=== PATIENT | male | born 1955 | race Caucasian/White ===

== ENCOUNTER → 2018-11-26 17:37 | Outpatient (CLI) | payer OTHER, SELFPAY ==
--- NOTE | 2018-11-26 18:15 | MRI_ITS ---
HISTORY: Spondylosis, RIGHT leg and buttock pain x 7 months. History of spine surgery 40 years ago. EXAM/TECHNIQUE: MR Spine Lumbar W/O Contrast: 1.5 Susannah. Multiplanar, multisequence. COMPARISON: None. FINDINGS: # of images incl. paperwork: 127 No fracture or acute signal changes in the vertebrae or disks. Disc desiccation most prominent in the lower lumbar spine. Multilevel mild endplate degenerative signal changes and irregularity, most prominent at L4-5 and L5-S1. Conus medullaris terminates at the level of the L1-2 disc with normal contour and signal. Thecal sac terminates at the level of S1-2. No acute or concerning findings in the paraspinal soft tissues. At L1-2, mild bilateral facet degeneration causes only mild narrowing. At L2-3, small disc bulge and mild bilateral facet degeneration causes only mild narrowing. At L3-4, diffuse disc bulge and mild bilateral facet degeneration causes mild narrowing of the spinal canal and right foramen. Disc abuts but does not displace the traversing bilateral L4 nerve roots in the subarticular zones. Slightly more prominent narrowing of the left foramen with disc extending into the foramen and abutting the exiting left L3 nerve root. At L4-5, diffuse disc bulge and mild facet degeneration causes only mild narrowing of the spinal canal and foramina. At L5-S1, there is evidence of remote right hemilaminotomy. Vertebral body osteophytes cause mild spinal canal and mild bilateral foraminal narrowing. No evidence of nerve root impingement. MRI/Spine Lumbar (Routine) IMPRESSION: Multilevel degenerative changes and status post remote right L5-S1 hemilaminotomy. No definitive etiology for right-sided radiculopathy identified. at 2021 Reported and signed by: Nima Lopez MD Electronically Signed: Nima Lopez, at 20:20 EDT Tel , Service support ,
== END ==
PROVIDERS: Family Provider Family Medicine; PCP Family Medicine
DX: M47.896 Other spondylosis, lumbar region (principal); M54.16 Radiculopathy, lumbar region
CPT/HCPCS: 72148